=== PATIENT | female | born 1940 | race Caucasian/White ===

== ENCOUNTER 2023-04-03 15:53 | Emergency (ER) | payer MEDICARE, MEDICAID ==
--- NOTE | 2023-04-03 16:05 | ED Upper Extremity ---
General Chief Complaint: Upper Extremity Stated Complaint: RT SHOULDER INJ Source: patient Exam Limitations: no limitations History of Present Illness Date Seen by Provider: Apr 03, 2023 Time Seen by Provider: 15:54 Initial Comments 82-year-old female that is mgyik-xonl-hbxmpjbw with past medical history of prior stroke, hypertension, hyperlipidemia coming in as a referral from the urgent care after she was walking, tripped on an object, landing on her right s houlder with immediate pain in her right shoulder. Pain is worse with movement, better with hydrocodone which she took. She did not hit her head, did not pass out, no neck or back pain, no headache, nausea, vomiting, vision changes, weakness, numbness, or any other concerns. She has been ambulatory since the incident a couple hours ago Allergies and Home Medications Allergies Coded Allergies: No Known Drug Allergies (Unverified , 04/03/23) Patient Home Medication List Home Medication List Reviewed: Yes Review of Systems Constitutional: No fever EENTM: no symptoms reported Respiratory: no symptoms reported Cardiovascular: no symptoms reported Gastrointestinal: no symptoms reported Genitourinary: no symptoms reported Musculoskeletal: see HPI Skin: no symptoms reported Psychiatric/Neurological: No Symptoms Reported Past Hpbwnzw-Wigviu-Gznvzw Hx Patient Social History Tobacco Use?: No Substance use?: No Alcohol Use?: No Physical Exam Vital Signs Vital Signs - First Documented 04/03/23 15:53 Temp 36.9 Pulse 84 Resp 16 B/P (MAP) 156/70 (98) Pulse Ox 93 O2 Delivery Room Air Capillary Refill : Height, Weight, BMI Height: '" Weight: lbs. oz. kg; BMI Method: General Appearance: WD/WN, no apparent distress HEENT: PERRL/EOMI, normal ENT inspection, pharynx normal Neck: non-tender, full range of motion, supple, normal inspection Cardiovascular: regular rate, rhythm Respiratory: chest non-tender, lungs clear, normal breath sounds, no respiratory distress, no accessory muscle use Gastrointestinal: normal bowel sounds, non tender, soft Back: normal inspection, no CVA tenderness, no vertebral tenderness Shoulder: pain (Right shoulder with pain approximately, limited range of motion due to pain, normal sensation over the deltoid, neurovascularly intact otherwise) Elbow/Forearm: normal inspection, non-tender, no evidence of injury, normal ROM Wrist: Yes normal inspection, Yes non-tender, Yes no evidence of injury, Yes normal ROM Hand: normal inspection, non-tender, no evidence of injury, normal ROM Neurologic/Tendon: normal sensation, normal motor functions, normal tendon functions Neurologic/Psychiatric: no motor/sensory deficits, alert, normal mood/affect, oriented x 3 Skin: normal color, warm/dry Progress/Results/Core Measures Results/Orders My Orders Orders - SUZANNE WOODSON MD Shoulder 3 View Right (04/03/23 16:01) Vital Signs/I&O 04/03/23 04/03/23 15:53 16:33 Temp 36.9 36.9 Pulse 84 84 Resp 16 16 B/P (MAP) 156/70 (98) 156/70 Pulse Ox 93 93 O2 Delivery Room Air Room Air Progress Progress Note : Progress Note 82-year-old female with above history coming in due to right shoulder pain after falling. ABCs were intact and vitals were stable on presentation. Physical exam with tenderness over the right shoulder with limited range of motion due to pain. She is otherwise neurovascularly intact. X-ray of the right shoulder ordered and interpreted by me showing right proximal humerus fracture which is displaced. The radiologist also noticed a contour abnormality of the scapula of unclear significance. She has no pain with palpation of her entire scapula, likely this is not a significant finding at this time. She was given a sling for comfort. She should follow-up with orthopedics as an outpatient. She has hydrocodone at home already for pain control. She did not hit her head, did not pass out, does not take any blood thinners, and no other red flags for significant head or cervical spine injury. We will forego CT imaging at this time. I believe she is stable for discharge with outpatient follow-up. She was sent home with strict return precautions Diagnostic Imaging Diagonstic Imaging: Xray (right shoulder) Comments [facility]. [place], [place] NAME: EVELIN CHAN [facility] REC#: [id number] PT STATUS: REG ER : 1940 PHYSICIAN: SUZANNE WOODSON MD ADMIT DATE: 04/03/23/ER FS Draft Date of Exam:04/03/23 SHOULDER 3 VIEW RIGHT EXAMINATION: Right shoulder radiographs, 3 views. COMPARISON: None. HISTORY: 82-year-old female, fall. Right shoulder pain. FINDINGS: There is a comminuted displaced right proximal humerus fracture with fracture involvement of at least the humeral neck and greater tuberosity. There is question of lesser tuberosity fracture involvement. The primary fracture fragment containing the majority of the articulating surface of the humeral head is inferiorly subluxed relative to the glenoid. There is a deformity of the scapula of unclear exact age. The acromioclavicular joint is normally aligned. IMPRESSION: 1. Comminuted displaced right proximal humerus fracture with fracture involvement of at least the humeral neck and greater tuberosity with suspected involvement of the lesser tuberosity. 2. Significant contour abnormality of the scapula likely reflecting fracture of unclear exact age. Dictated on workstation # [id number] Dict: 04/03/23 1628 Trans: 04/03/23 1631 [facility] [id number] Interpreted by: NATACHA RAMON MD Electronically signed by: Departure Impression Primary Impression: Shoulder fracture, right Qualified Codes: S42.91XA - Fracture of right shoulder girdle, part unspeci fied, initial encounter for closed fracture Disposition: HOME, SELF-CARE Condition: Stable Departure-Patient Inst. Decision time for Depature: 16:35 Referrals: ZULLY HARRISON MD (PCP) Primary Care Physician SANDRA APODACA Patient Instructions: Shoulder Fracture (DC) Add. Discharge Instructions: Your shoulder is broken. Keep the sling on for comfort. Take hydrocodone as needed for pain. Follow-up with Benoit Apodaca here in the next several days to evaluate your shoulder further and he can help discuss with you if it needs surgery or not. SUZANNE WOODSON MD Apr 03, 2023 16:05
--- NOTE | 2023-04-03 16:32 | Diagnostic Imaging Report ---
EXAMINATION: Right shoulder radiographs, 3 views. COMPARISON: None. HISTORY: 82-year-old female, fall. Right shoulder pain. FINDINGS: There is a comminuted displaced right proximal humerus fracture with fracture involvement of at least the humeral neck and greater tuberosity. There is question of lesser tuberosity fracture involvement. The primary fracture fragment containing the majority of the articulating surface of the humeral head is inferiorly subluxed relative to the glenoid. There is a deformity of the scapula of unclear exact age. The acromioclavicular joint is normally aligned. IMPRESSION: 1. Comminuted displaced right proximal humerus fracture with fracture involvement of at least the humeral neck and greater tuberosity with suspected involvement of the lesser tuberosity. 2. Significant contour abnormality of the scapula likely reflecting fracture of unclear exact age. Dictated by: Dictated on workstation # [id number]
[2023-04-03 16:33] VITALS: BP 156/70
== END 2023-04-03 16:33 | disposition home or self-care (01) ==
LOC: ER FS 15:55
DX: S42.251A Displaced fracture of greater tuberosity of right humerus, initial encounter for closed fracture (principal); W01.0XXA Fall on same level from slipping, tripping and stumbling without subsequent striking against object, initial encounter; Y93.01 Activity, walking, marching and hiking
CPT/HCPCS: 73030